=== PATIENT | female | born 1965 | race Caucasian/White ===

== ENCOUNTER 2020-03-08 10:57 | Day surgery (SDC) | payer BC, SELFPAY ==
[2020-03-06 18:00] VITALS: BMI 26.6
--- NOTE | 2020-03-07 12:11 | P.CONAN_ITS ---
Documented by User: Valerie Morales 03/07/20 12:12 HPI - Anesthesia Eval Consult details Narrative: 54yo F for colonoscopy: screening FOR[facility]LY [facility], [facility] Past Medical History Medical History Urinary incontinence Surgical History Surgical History History of colonoscopy History of hysterectomy History of tonsillectomy Hx of breast reduction, elective Social History Social History Smoking Status: Never smoker Use of substances other than those prescribed or required for medical reasons: No Advance Directives: No Advance Directives Information Provided: No Advance Directives on File: No Meds Allergies Allergy/AdvReac Type Severity Reaction Status Date / Time No Known Allergies Allergy Verified 03/06/20 17:48 Home Medications Medication Instructions Recorded Confirmed Type No Known Home Meds 03/06/20 03/06/20 History Exam Exam Date and Time: March 07, 2020 1211 Height,Weight and Vital Signs: Height 5 ft 4 in Weight 70.307 kg Assessment and Plan Assessment Anesthesia Assessment: Chart Reviewed Documented by User: Carey Tovar 03/08/20 11:38 FORMERLY [facility], [facility] Past Medical History Medical History Urinary incontinence Surgical History Surgical History History of colonoscopy History of hysterectomy History of tonsillectomy Hx of breast reduction, elective Social History Social History Smoking Status: Never smoker Use of substances other than those prescribed or required for medical reasons: No Advance Directives: No Advance Directives Information Provided: No Advance Directives on File: No Meds Allergies Allergy/AdvReac Type Severity Reaction Status Date / Time No Known Allergies Allergy Verified 03/06/20 17:48 Home Medications Medication Instructions Recorded Confirmed Type No Known Home Meds 03/06/20 03/06/20 History Exam Airway Mallampati Class: II TM Dist: >3cm Neck ROM: Full Assessment and Plan Assessment Anesthesia Assessment: Anesthesia Plan Discussed and Chart Reviewed Final Anesthetic Review NPO: Yes ASA Class: I Final Preanesthetic Review: No Changes in Pt Med Stat, Meds/Allgs Chart Reviewed, Consent Obtained/Reviewed and Anes Risks/Benef Reviewed Patient Risk: Low Procedure Risk: Low Assessment/Block/Sedation in SS: Assess/Block/Sedation-SS Anesthetic Plan Anesthetic Plan: MAC: Disposition: Standard PACU
[2020-03-08 11:05] VITALS: BP 104/77; PULSE 69; RESP 16; TEMP 35.8; O2SAT 98
[2020-03-08] MEDS: Lactated Ringers 1,000 ML 100 ML IVCONT (11:14)
[2020-03-08 11:57] VITALS: BP 91/46; PULSE 55; RESP 16; TEMP 36; O2SAT 97
--- NOTE | 2020-03-08 11:57 | MHC.SHP ---
Pre-Procedural Eval Section A The patient is an INPATIENT: No Changes since office visit: No Cold of Flu in the past 2 weeks, No New Medical Problems, No Changes in Medication and No Patient answered all questions The History & Physical has been completed within 30 days and I have reviewed it.: Yes Section B Chief Complaint: Screening Allergies: Allergies Allergy/AdvReac Type Severity Reaction Status Date / Time No Known Allergies Allergy Verified 03/06/20 17:48 Plan Patient has been examined and remains a candidate for the planned procedure
--- NOTE | 2020-03-08 11:57 | PM.OP ---
Brief Operative Note Date of procedure: 03/08/20 Pre-op diagnosis: screening Post-op diagnosis: other (colon polyps) Procedure: colonosocpy Surgeon: Drew Linares Anesthesia: MAC Estimated blood loss (mL): 5 Pathology: other (polyps x3) Condition: stable Disposition: PACU
[2020-03-08 12:13] VITALS: BP 104/60; PULSE 55; RESP 16; TEMP 36.1; O2SAT 100
--- NOTE | 2020-03-08 12:18 | OP_ITS ---
SURGEON: Drew Linares MD INDICATIONS: Colon cancer screening. PREOPERATIVE DIAGNOSIS: POSTOPERATIVE DIAGNOSIS: PROCEDURE PERFORMED: Colonoscopy to the terminal ileum with biopsy and snare polypectomy. ESTIMATED BLOOD LOSS: COMPLICATIONS: ANESTHESIA: ASSISTANTS: SPECIMENS: MEDICATIONS: Monitored anesthesia care. DESCRIPTION OF PROCEDURE: History and physical performed. The risks and benefits of the procedure were explained to the patient. Informed consent was obtained. The patient was placed in the left lateral decubitus position. A digital rectal exam was performed and was found to be normal. The Olympus pediatric video colonoscope was introduced into the rectum and advanced to the cecum without difficulty. The cecum was identified by transillumination, palpation, and identification of the ileocecal valve. Examination was performed and the scope was removed. She tolerated the procedure well and was taken to recovery area in stable condition. FINDINGS: The terminal ileum was normal. The visualized colonic mucosa was normal. The quality of the prep was good. Three polyps were identified. All were less than 10 mm, two were removed with a snare. These were located at 70 cm and 25 cm. The 3rd polyp at 60 cm was removed with biopsy forceps. No other polyps were identified. Retroflexed examination was normal. IMPRESSION: Colon polyps. RECOMMENDATION: Follow up the biopsy results. MD HORACIO Tovar/ROSS / [id number]
--- NOTE | 2020-03-08 12:57 | HO.POSTANES ---
Post Anesthesia Evaluation Post Anesthesia Evaluation Vital Signs: Vital Signs Temp Pulse Resp BP Pulse Ox 03/08/20 12:13 97 F 55 16 104/60 100 03/08/20 11:57 96.8 F 55 16 91/46 L 97 03/08/20 11:05 96.5 F L 69 16 104/77 98 Anesthesia: Monitored Mental Status: Awake Pain Control: Satisfactory Nausea/Vomiting: None Hydration: Adequate Anesthesia-Related Issues: No Anes. Related Issues
== END 2020-03-08 14:15 | disposition home or self-care (01) ==
PROVIDERS: PCP Internal Medicine Medical Oncology; Visit Provider Internal Medicine Gastroenterology
PROC: 0DJD8ZZ Inspection of Lower Intestinal Tract, Via Natural or Artificial Opening Endoscopic (ICD-10-PCS; CPT 45378; principal; 2020-03-08 12:00)
DX: Z12.11 Encounter for screening for malignant neoplasm of colon (principal); Z80.0 Family history of malignant neoplasm of digestive organs; D12.4 Benign neoplasm of descending colon; D12.5 Benign neoplasm of sigmoid colon; Z80.3 Family history of malignant neoplasm of breast; R32 Unspecified urinary incontinence
CPT/HCPCS: 45385; 45380; 88305

== ENCOUNTER 2020-03-28 06:05 | Outpatient (REF) | payer BC, SELFPAY ==
[2020-03-28 07:55] LABS: MANUAL DIFF FLAG NO
[2020-03-28 07:57] LABS: Basophils Percent Auto 0.8 % (0-2); Eosinophils Absolute Auto 0.1 X10*3/uL (0.0-0.4); Eosinophils Percent Auto 3.1 % (0-4); Hematocrit 39.6 % (37-47); Imm Gran Abs Auto 0.01 X10*3/uL (0.00-0.03); Imm Gran Pct Auto 0.3 % (0.0-0.4); Lymphocytes Absolute Auto 1.1 X10*3/uL (1.2-4.9); Lymphocytes Percent Auto 29.1 % (20-40); Mean Corpuscular HGB Conc 32.8 g/dl (31.0-35.0); Mean Corpuscular Volume 94.3 fL (80-98); Mean Platelet Volume 11.3 fL (9.4-12.3); Monocytes Absolute Auto 0.3 X10*3/uL (0.1-1.2); Monocytes Percent Auto 8.4 % (2-11); Neutrophils Absolute Auto 2.2 X10*3/uL (2.0-8.3); Neutrophils Percent Auto 58.3 % (45-73); Platelet Count 188 X10*3/uL (160-400); Red Cell Distribution Width 12.4 % (11.0-16.0); White Blood Count 3.8 X10*3/uL (4.8-10.8)
[2020-03-28 08:35] LABS: Alanine Aminotransferase 20 U/L (0-31); Albumin Level 4.3 g/dL (3.5-5.0); Alkaline Phosphatase 67 U/L (39-117); Anion Gap 11 (12-20); Aspartate Amino Transferase 17 U/L (5-31); Bilirubin Total 0.6 mg/dL (0.0-1.0); Blood Urea Nitrogen 14 mg/dL (9-16); Calcium 8.7 mg/dL (8.4-10.2); Carbon Dioxide 24 mmol/L (22-29); Chloride 108 mmol/L (96-108); Cholesterol 235 mg/dL; Estimated Glomerular Filt Rate > 60; Glucose Fasting 93 mg/dL (60-99); HDL Cholesterol 81 mg/dL; LDL Cholesterol Calculated 121 mg/dl; Potassium 4.2 mmol/l (3.3-5.1); Sodium 139 mmol/L (135-145); Total Protein 6.3 g/dL (6.5-8.0); Triglycerides 167 mg/dL
[2020-03-28 08:42] LABS: Vitamin D 25-OH Total 21.5 ng/mL (>30)
== END 2020-03-28 06:06 | disposition home or self-care (01) ==
LOC: HO.LAB 06:05
PROVIDERS: Visit Provider Internal Medicine Medical Oncology
DX: F32.9 Major depressive disorder, single episode, unspecified (principal); E78.5 Hyperlipidemia, unspecified; F51.01 Primary insomnia
CPT/HCPCS: 36415; 80053; 80061; 82306; 85025

== ENCOUNTER 2020-06-28 06:14 | Outpatient (REF) | payer BC, SELFPAY ==
[2020-06-28 07:13] LABS: MANUAL DIFF FLAG NO
[2020-06-28 07:19] LABS: Basophils Percent Auto 0.8 % (0-2); Eosinophils Absolute Auto 0.1 X10*3/uL (0.0-0.4); Eosinophils Percent Auto 3.6 % (0-4); Hematocrit 43.5 % (37-47); Hemoglobin 14.5 g/dl (12.0-16.0); Imm Gran Abs Auto 0.01 X10*3/uL (0.00-0.03); Imm Gran Pct Auto 0.3 % (0.0-0.4); Lymphocytes Absolute Auto 1.5 X10*3/uL (1.2-4.9); Lymphocytes Percent Auto 38.5 % (20-40); Mean Corpuscular HGB Conc 33.3 g/dl (31.0-35.0); Mean Corpuscular Hemoglobin 31.1 pg (27.0-33.0); Mean Corpuscular Volume 93.3 fL (80-98); Mean Platelet Volume 11.1 fL (9.4-12.3); Monocytes Absolute Auto 0.4 X10*3/uL (0.1-1.2); Monocytes Percent Auto 10.5 % (2-11); Neutrophils Absolute Auto 1.8 X10*3/uL (2.0-8.3); Neutrophils Percent Auto 46.3 % (45-73); Platelet Count 205 X10*3/uL (160-400); Red Blood Count 4.66 X10*6/uL (4.20-5.50); Red Cell Distribution Width 11.7 % (11.0-16.0); White Blood Count 3.9 X10*3/uL (4.8-10.8)
[2020-06-28 07:44] LABS: Alanine Aminotransferase 32 U/L (0-31); Albumin Level 4.7 g/dL (3.5-5.0); Alkaline Phosphatase 76 U/L (39-117); Anion Gap 14 (12-20); Aspartate Amino Transferase 25 U/L (5-31); Bilirubin Total 0.5 mg/dL (0.0-1.0); Blood Urea Nitrogen 20 mg/dL (9-16); Calcium 9.4 mg/dL (8.4-10.2); Carbon Dioxide 26 mmol/L (22-29); Chloride 103 mmol/L (96-108); Cholesterol 312 mg/dL; Estimated Glomerular Filt Rate > 60; Glucose Fasting 107 mg/dL (60-99); HDL Cholesterol 74 mg/dL; LDL Cholesterol Calculated 206 mg/dl; Potassium 4.4 mmol/L (3.3-5.1); Sodium 139 mmol/L (135-145); Total Protein 7.2 g/dL (6.5-8.0); Triglycerides 161 mg/dL
== END 2020-06-28 06:15 | disposition home or self-care (01) ==
LOC: HO.LAB 06:14
PROVIDERS: PCP Internal Medicine Medical Oncology; Visit Provider Internal Medicine Medical Oncology
DX: E78.5 Hyperlipidemia, unspecified (principal); N83.209 Unspecified ovarian cyst, unspecified side; F51.01 Primary insomnia
CPT/HCPCS: 36415; 80053; 80061; 85025

== ENCOUNTER 2020-08-27 06:09 | Outpatient (REF) | payer BC, SELFPAY ==
[2020-08-27 07:45] LABS: Alanine Aminotransferase 29 U/L (0-31); Albumin Level 4.6 g/dL (3.5-5.0); Alkaline Phosphatase 87 U/L (39-117); Anion Gap 14 (12-20); Aspartate Amino Transferase 25 U/L (5-31); Bilirubin Total 0.9 mg/dL (0.0-1.0); Blood Urea Nitrogen 9 mg/dL (9-16); Calcium 9.4 mg/dL (8.4-10.2); Carbon Dioxide 25 mmol/L (22-29); Chloride 104 mmol/L (96-108); Cholesterol 264 mg/dL; Estimated Glomerular Filt Rate > 60; Glucose Fasting 101 mg/dL (60-99); HDL Cholesterol 83 mg/dL; LDL Cholesterol Calculated 159 mg/dl; Potassium 3.9 mmol/L (3.3-5.1); Sodium 139 mmol/L (135-145); Total Protein 6.9 g/dL (6.5-8.0); Triglycerides 112 mg/dL
== END 2020-08-27 06:10 | disposition home or self-care (01) ==
LOC: HO.LAB 06:09
PROVIDERS: PCP Internal Medicine Medical Oncology; Visit Provider Internal Medicine Medical Oncology
DX: E66.3 Overweight (principal)
CPT/HCPCS: 36415; 80053; 80061

== ENCOUNTER 2022-06-22 06:12 | Outpatient (REF) | payer BC, SELFPAY ==
[2022-06-22 06:20] LABS: MANUAL DIFF FLAG NO
[2022-06-22 07:41] LABS: Basophils Percent Auto 0.8 % (0-2); Eosinophils Absolute Auto 0.1 X10*3/uL (0.0-0.4); Eosinophils Percent Auto 2.5 % (0-4); Hematocrit 44.6 % (37.0-47.0); Hemoglobin 14.7 g/dl (12.0-16.0); Imm Gran Abs Auto 0.02 X10*3/uL (0.00-0.03); Imm Gran Pct Auto 0.4 % (0.0-0.4); Lymphocytes Absolute Auto 1.3 X10*3/uL (1.2-4.9); Lymphocytes Percent Auto 27.4 % (20-40); Mean Corpuscular Hemoglobin 29.9 pg (27.0-33.0); Mean Corpuscular Volume 90.7 fL (80.0-98.0); Mean Platelet Volume 11.3 fL (9.4-12.3); Monocytes Absolute Auto 0.4 X10*3/uL (0.1-1.2); Monocytes Percent Auto 7.8 % (2-11); Neutrophils Percent Auto 61.1 % (45-73); Platelet Count 205 X10*3/uL (160-400); Red Blood Count 4.92 X10*6/uL (4.20-5.50); Red Cell Distribution Width 12.1 % (11.0-16.0); White Blood Count 4.9 X10*3/uL (4.8-10.8)
[2022-06-22 08:15] LABS: Estimated Average Glucose 111 mg/dL; Hemoglobin A1c % 5.5 %
[2022-06-22 08:18] LABS: Alanine Aminotransferase 36 U/L (0-31); Albumin Level 4.6 g/dL (3.5-5.0); Alkaline Phosphatase 103 U/L (39-117); Anion Gap 17 (12-20); Aspartate Amino Transferase 26 U/L (5-31); Bilirubin Total 0.7 mg/dL (0.0-1.0); Blood Urea Nitrogen 14 mg/dL (9-16); Calcium 9.9 mg/dL (8.4-10.2); Carbon Dioxide 22 mmol/L (22-29); Chloride 107 mmol/L (96-108); Cholesterol 331 mg/dL; Estimated Glomerular Filt Rate > 60; Glucose Fasting 112 mg/dL (60-99); HDL Cholesterol 84 mg/dL; LDL Cholesterol Calculated 214 mg/dl; Potassium 4.2 mmol/L (3.3-5.1); Sodium 142 mmol/L (135-145); Total Protein 6.9 g/dL (6.5-8.0); Triglycerides 168 mg/dL
[2022-06-22 08:23] LABS: Thyroid Stimulating Hormone 1.67 uIU/mL (0.32-4.0); Vitamin D 25-OH Total 14.9 ng/mL (>30)
== END 2022-06-22 06:13 | disposition home or self-care (01) ==
LOC: HO.LAB 06:12
PROVIDERS: PCP Internal Medicine Medical Oncology; Visit Provider Internal Medicine Medical Oncology
DX: Z00.00 Encounter for general adult medical examination without abnormal findings (principal)
CPT/HCPCS: 36415; 80053; 80061; 82306; 83036; 84443; 85025

== ENCOUNTER 2023-05-24 12:20 | Outpatient (REF) | payer BC, SELFPAY ==
--- NOTE | ~2023-05-24 | XR_ITS ---
EXAMINATION: XR CHEST CLINICAL INFORMATION: Chest pain. COMPARISON: None available. TECHNIQUE: 2 views of the chest were obtained. FINDINGS: The lungs are well inflated. There is no gross pneumothorax. No pleural effusion. Degenerative changes in the thoracic spine. Heart size is normal. No focal consolidation to suggest pneumonia. XR/XR chest 2V IMPRESSION: No evidence of pneumonia.
--- NOTE | 2023-05-24 12:25 | ECG_ITS ---
Test Reason : chest pain Blood Pressure : / mmHG Vent. Rate : 067 BPM Atrial Rate : 067 BPM P-R Int : 152 ms QRS Dur : 074 ms QT Int : 404 ms P-R-T Axes : 041 001 044 degrees QTc Int : 426 ms Normal sinus rhythm Normal ECG No previous ECGs available Referred By: James Gaona Electronically Signed By:JONATHAN HEREDIA MD
== END 2023-05-24 12:21 | disposition home or self-care (01) ==
LOC: HO.XRAY 12:20
PROVIDERS: PCP Internal Medicine Medical Oncology; Visit Provider Internal Medicine Medical Oncology
DX: R07.9 Chest pain, unspecified (principal)
CPT/HCPCS: 71046; 93005

== ENCOUNTER → 2023-05-24 12:25 | Outpatient (BNV) | payer BC, SELFPAY | PROVIDERS: PCP Internal Medicine Medical Oncology; Visit Provider Internal Medicine Cardiovascular Disease | DX: R07.9 Chest pain, unspecified (principal) | CPT/HCPCS: 93010 ==

== ENCOUNTER 2023-05-26 07:57 | Outpatient (REF) | payer BC, SELFPAY ==
[2023-05-26 08:20] LABS: Basophils Percent Auto 0.5 % (0-2); Eosinophils Absolute Auto 0.1 X10*3/uL (0.0-0.4); Hematocrit 43.4 % (37.0-47.0); Hemoglobin 14.7 g/dl (12.0-16.0); Imm Gran Abs Auto 0.01 X10*3/uL (0.00-0.03); Imm Gran Pct Auto 0.3 % (0.0-0.4); Lymphocytes Absolute Auto 1.3 X10*3/uL (1.2-4.9); Lymphocytes Percent Auto 34.1 % (20-40); MANUAL DIFF FLAG SCAN; Mean Corpuscular HGB Conc 33.9 g/dl (31.0-35.0); Mean Corpuscular Hemoglobin 31.3 pg (27.0-33.0); Mean Corpuscular Volume 92.5 fL (80.0-98.0); Mean Platelet Volume 10.5 fL (9.4-12.3); Monocytes Absolute Auto 0.4 X10*3/uL (0.1-1.2); Monocytes Percent Auto 9.8 % (2-11); Neutrophils Absolute Auto 1.9 x10*3/uL (2.0-8.3); Neutrophils Percent Auto 52.3 % (45-73); Platelet Count 199 X10*3/uL (160-400); Red Blood Count 4.69 X10*6/uL (4.20-5.50); Red Cell Distribution Width 11.9 % (11.0-16.0); SCAN SMEAR FLAG 1; White Blood Count 3.7 X10*3/uL (4.8-10.8)
[2023-05-26 08:54] LABS: Alanine Aminotransferase 124 U/L (0-31); Albumin Level 4.7 g/dL (3.5-5.0); Alkaline Phosphatase 98 U/L (39-117); Anion Gap 15 (12-20); Aspartate Amino Transferase 80 U/L (5-31); Bilirubin Total 0.8 mg/dL (0.0-1.0); Blood Urea Nitrogen 10 mg/dL (9-16); Calcium 9.8 mg/dL (8.4-10.2); Carbon Dioxide 25 mmol/L (22-29); Chloride 105 mmol/L (96-108); Cholesterol 214 mg/dL (<200); Estimated Glomerular Filt Rate > 60; Glucose Fasting 97 mg/dL (60-99); HDL Cholesterol 57 mg/dL (>40); LDL Cholesterol Calculated 137 mg/dL (<100); Potassium 3.5 mmol/L (3.3-5.1); Sodium 141 mmol/L (135-145); Total Protein 7.2 g/dL (6.5-8.0); Triglycerides 103 mg/dL (<150)
[2023-05-26 09:12] LABS: SLIDE REVIEW VERIFIED
== END 2023-05-26 07:58 | disposition home or self-care (01) ==
LOC: HO.LAB 07:57
PROVIDERS: PCP Internal Medicine Medical Oncology; Visit Provider Internal Medicine Medical Oncology
DX: F32.9 Major depressive disorder, single episode, unspecified (principal); E78.5 Hyperlipidemia, unspecified
CPT/HCPCS: 36415; 80053; 80061; 85025

== ENCOUNTER 2023-06-23 06:02 | Outpatient (REF) | payer BC, SELFPAY ==
[2023-06-23 07:42] LABS: Alanine Aminotransferase 38 U/L (0-31); Albumin Level 4.3 g/dL (3.5-5.0); Alkaline Phosphatase 117 U/L (39-117); Anion Gap 13 (12-20); Aspartate Amino Transferase 27 U/L (5-31); Bilirubin Total 0.4 mg/dL (0.0-1.0); Blood Urea Nitrogen 11 mg/dL (9-16); Calcium 9.8 mg/dL (8.4-10.2); Carbon Dioxide 24 mmol/L (22-29); Chloride 107 mmol/L (96-108); Estimated Glomerular Filt Rate > 60; Glucose Random 107 mg/dL (60-115); Potassium 4.1 mmol/L (3.3-5.1); Sodium 140 mmol/L (135-145); Total Protein 6.9 g/dL (6.5-8.0)
[2023-06-23 07:58] LABS: Gamma Glutamyl Transpeptidase 73 U/L (7-33)
== END 2023-06-23 06:03 | disposition home or self-care (01) ==
LOC: HO.LAB 06:02
PROVIDERS: PCP Internal Medicine Medical Oncology; Visit Provider Internal Medicine Medical Oncology
DX: E66.3 Overweight (principal); R74.8 Abnormal levels of other serum enzymes
CPT/HCPCS: 36415; 80053; 82977

== ENCOUNTER 2023-06-29 07:51 | Day surgery (SDC) | payer BC, SELFPAY ==
--- NOTE | 2023-06-28 10:21 | P.CONAN_ITS ---
HPI - Anesthesia Eval Consult details Narrative: 58yo F for Colonoscopy FORMERLY [facility] Past Medical History Medical History Urinary incontinence Surgical History Surgical History History of colonoscopy History of hysterectomy History of tonsillectomy Hx of breast reduction, elective Meds Allergies Allergy/AdvReac Type Severity Reaction Status Date / Time No Known Allergies Allergy Verified 03/06/20 17:48 Home Medications Medication Instructions Recorded Confirmed Last Taken Type No Known Home Meds 03/06/20 03/06/20 Unknown History Exam Pertinent Lab Results Pertinent Lab Results: Laboratory Tests 05/26/23 06/23/23 08:06 06:27 WBC 3.7 L Hgb 14.7 Hct 43.4 Plt Count 199 Sodium 140 Potassium 4.1 Chloride 107 Carbon Dioxide 24 BUN 11 Creatinine 0.82 Narrative Narrative: EKG 05/2023 Vent. Rate : 067 BPM Atrial Rate : 067 BPM P-R Int : 152 ms QRS Dur : 074 ms QT Int : 404 ms P-R-T Axes : 041 001 044 degrees QTc Int : 426 ms Normal sinus rhythm Normal ECG No previous ECGs available Assessment and Plan Assessment Anesthesia Assessment: Chart Reviewed
--- OUTSIDE RECORDS SUMMARY | 2023-06-29 07:55 | XMS_ITS | Continuity of Care Document ---
Author Name Unknown Organization [facility] Address [address] [facility] [place] [address]- Care Team Providers Care Seismograph Observer Name Role Phone Marco Antonio Fonseca MD Primary Care Physician [phone] Encounter 06/15/19 - 06/22/19 [facility] [address], [facility] [address] [place] [address]- [phone] Attending Physician: Marco Antonio Fonseca MD Admitting Physician: Marco Antonio Fonseca MD Referring Physician: Marco Antonio Fonseca MD Allergies, Adverse Reactions, Alerts Substance Reaction Severity Status NKA Active Results Radiology Reports * Exam Date Time Procedure Performing Provider Status 06/15/19 3:12 PM Dexa Bone Density (Axial) Vincent Jackson (Verified) Notes: (Dexa Bone Density (Axial)) Reason For Exam: M85.89 OSTEOPENIA RESULT: DEXA BONE DENSITY (AXIAL) Bone Density Report Name: JONELLE AWAD Age: 54 Sex: Female Ethnicity: White Date of : 1965 Indication: POSTMENOPAUSAL. Referring Provider: MARCO ANTONIO FONSECA Study: Bone densitometry was performed. Exam Date: June 15, 2019 Accession number: [id number] Bone Density: Region BMD T-score Z-score Classification AP Spine (L1-L4) 0.928 -1.1 0.0 Osteopenia Femoral Neck (Right) 0.829 -0.2 0.9 Normal Total Hip (Right) 0.890 -0.4 0.3 Normal World Health Organization criteria for BMD impression classify patients as: Normal (T-score at or above -1.0), Osteopenia (T-score between -1.0 and -2.5), or Osteoporosis (T-score at or below -2.5). 10-year Fracture Risk(1): Major Osteoporotic Fracture 5.3% Hip Fracture 0.1% Reported Risk Factors: [place] (), Neck BMD=0.829, BMI=25.6 (1) FRAX(R) Version 3.00. Fracture probability calculated for an untreated patient. Fracture probability may be lower if the patient has received treatment. Previous Exams: Region Exam Age BMD T-score BMD Change BMD Change Date g/cm2 vs Baseline vs Previous AP Spine(L1-L4) 06/15/2019 54 0.928 -1.1 3.3%* 2.7%* 04/29/2017 52 0.904 -1.3 0.6% 0.6% 04/20/2014 49 0.898 -1.4 Total Hip(Right) 06/15/2019 54 0.890 -0.4 9.1%* 1.9% 04/29/2017 52 0.873 -0.6 7.1%* 7.1%* 04/20/2014 49 0.815 -1.0 Femoral Neck(Right) 06/15/2019 54 0.829 -0.2 13.8%* 9.5%* 04/29/2017 52 0.757 -0.8 4.0% 4.0% 04/20/2014 49 0.728 -1.1 *Denotes significance at 95% confidence level, LSC for AP Spine = 0.022 g/cm2, LSC for Total Hip = 0.027 g/cm2 Clinical Information Provided by Patient: Has the following medical conditions: Hysterectomy Patient maximum height was 63.5 Menopause Age: 44 Onset of menses at age 11 Number of children 1 Impression: The patient has osteopenia as determined by WHO criteria. Reported by: Chapincito Bennett M.D. on 06/16/2019 11:24:00 AM. Dictated By: Chapincito Bennett MD Dictated Date/Time: 06/16/19 11:25 a Reviewed By: Chapincito Bennett MD Signed By: Chapincito Bennett MD Signed Date/Time: 06/16/19 11:25 am Transcribed By: DOMINIK Transcribed Date/Time: 06/16/19 11:25 am
--- OUTSIDE RECORDS SUMMARY | 2023-06-29 07:55 | XMS_ITS | Continuity of Care Document ---
Author Name Unknown Organization [facility] Address [address] [facility] [address] [place] [address]- Care Team Providers Care Esthetician/Spa Coordinator Name Role Phone Marilee Fonseca MD Primary Care Physician [phone] Encounter 07/24/21 - 07/31/21 [facility] [address], [facility] [address] [place] [address]- Attending Physician: Marilee Fonseca MD Admitting Physician: Marilee Fonseca MD Referring Physician: Marilee Fonseca MD Allergies, Adverse Reactions, Alerts No Known Allergies
--- OUTSIDE RECORDS SUMMARY | 2023-06-29 07:55 | XMS_ITS | Continuity of Care Document ---
Author Name Unknown Organization [facility] Address [address] [facility] [address] [place] [address]- Care Team Providers Care Director Of Anesthesia Services Name Role Phone Marilee Fonseca MD Primary Care Physician Encounter 06/19/20 - 06/26/20 [facility] [address], [address] [place] [address]- Attending Physician: Marilee Fonseca MD Admitting Physician: Marilee Fonseca MD Referring Physician: Marilee Fonseca MD Allergies, Adverse Reactions, Alerts Substance Reaction Severity Status NKA Active
--- OUTSIDE RECORDS SUMMARY | 2023-06-29 07:55 | XMS_ITS | Continuity of Care Document ---
Author Name Unknown Organization [facility] Address [address] [facility] [place] [address]- Care Team Providers Care Termite Inspector Name Role Phone Marilee Fonseca MD Primary Care Physician Encounter 07/27/22 - 08/03/22 [facility] [address], [address] [place] [address]- Attending Physician: Jonelle Ayala DO Admitting Physician: Jonelle Ayala DO Referring Physician: Jonelle Ayala DO Allergies, Adverse Reactions, Alerts No Known Allergies Results Radiology Reports * Exam Date Time Procedure Performing Provider Status 07/27/22 4:07 PM MM Digital Mammo Screening Reid Welch son; Auth (Verified) Notes: (MM Digital Mammo Screening) Reason For Exam: Z12.31 SCREENING RESULT: MM Digital Mammo Screening PROCEDURE: MM Digital Mammo Screening INDICATION: Screening for breast cancer. COMPARISON: Multiple prior studies dating back to 06/15/2019. TECHNIQUE: Full-field digital CC and MLO 3D tomosynthesis images of both breasts were acquired. Computer-aided detection (CAD) was utilized in the interpretation of this study. DENSITY: The breast tissue contains scattered areas of fibroglandular density. FINDINGS: No suspicious masses, suspicious microcalcifications, or areas of architectural distortion are seen in either breast to suggest malignancy. IMPRESSION: No mammographic evidence of malignancy. RECOMMENDATION: Annual mammographic screening BI-RADS: 1 (Negative) Lay letter mailed to patient I have personally reviewed the images and I agree with this report. WSN: [id number] Ordering Physician: Jonelle Ayala Dictated By: Carlos Wellington DO Dictated Date/Time: 07/27/22 4:26 pm Reviewed By: Chapincito Bennett MD Signed By: Chapincito Bennett MD Signed Date/Time: 07/27/22 4:31 pm Transcribed By: DOMINIK Chicken Boner Date/Time: 07/27/22 4:20 pm Birads: MG Breast Screening * CorrinariCHANA rocha S: TRANSCRIBE Chapincito Bennett MD: VERIFY Carlos Wellington DO: SIGN Event Display: Result: Authored Date: [id number] PROCEDURE: MM Digital Mammo Screening INDICATION: Screening for breast cancer. COMPARISON: Multiple prior studies dating back to 06/15/2019. TECHNIQUE: Full-field digital CC and MLO 3D tomosynthesis images of both breasts were acquired. Computer-aided detection (CAD) was utilized in the interpretation of this study. DENSITY: The breast tissue contains scattered areas of fibroglandular density. FINDINGS: No suspicious masses, suspicious microcalcifications, or areas of architectural distortion are seen in either breast to suggest malignancy. IMPRESSION: No mammographic evidence of malignancy. RECOMMENDATION: Annual mammographic screening BI-RADS: 1 (Negative) Lay letter mailed to patient I have personally reviewed the images and I agree with this report. WSN: [id number] Ordering Physician: Jonelle Ayala Dictated By: Carlos Wellington DO Dictated Date/Time: 07/27/22 4:26 pm Reviewed By: Chapincito Bennett MD Signed By: Chapincito Bennett MD Signed Date/Time: 07/27/22 4:31 pm Transcribed By: DOMINIK Chicken Boner Date/Time: 07/27/22 4:20 pm Birads: Patient Care team information Care Team Related Persons Name: MAHSA AWAD Address: home [address] [place] [id number]
--- OUTSIDE RECORDS SUMMARY | 2023-06-29 07:55 | XMS_ITS | Patient Health Record ---
Author Name Unknown Organization [facility] Address [address] [facility] [address] [place] [address] Care Team Providers Care Design Assembler Name Role Phone James Gaona MD Primary Care Provider Unavailab Drew Sparks Jr Unavailable [phone] ALLERGIES No Known Allergies REASON FOR REFERRAL Referring Provider First Name James Referring Provider Last Name Candelaria Referring Provider Speciality Oncology Referred Organization [facility] Referred Provider Drew Linares Jr Referred Address [address] [place] [address],[address], [place],[address], Referred Provider Specialty Gastroentero logy General Notes Moira Sandoval 023 11:44:42 AM EST > requested an o blue referral from Dr. Gaona for office visit with Dr. Linares on 06-10-2023, Moira Sandoval 04/27/2023 01:13:50 PM EST > SPOKE WITH DR GAONA'S OFFICE. THIS IS STILL PENDING, Moira Sandoval 04/27/2023 04:23:50 PM EST > no referral required this is an [facility] plan ref # [id number] Referral Priority Routine MEDICATIONS Medication SIG (Take, Route, Frequency, Duration) Notes Start Date End Date Status buPROPion HCl ER (SR) 150 MG TAKE 1 TABLET BY MOUTH EVERY DAY IN THE MORNING FOR 30 DAYS Oral for 90 Active Fish Oil 1000 MG 1 capsule Orally Onc e a day for 30 day(s) Active Vitamin D3 25 MCG (1000 UT) Oral for 30 Active MiraLax (colon prep) 17 GM/SCOOP mixed with Gatorade or Crystal Light Orally begin at 5:00 p.m. the day before the procedure for 1 day 06/10/2023 Active IMMUNIZATIONS Vaccine Route Administration Date Status Comme nts Influenza Unknown 01/16/2020 Administered SOCIAL HISTORY Sex Assigned At : Social History Observation Description Sex Assigned At Unknown Alcohol Screen Question Answer Notes Did you have a drink contain ing alcohol in the past year? Yes How often did you have a dri nk containing alcohol in the past year? 4 or more times a week (4 points) How many drinks did you have on a typical day when you were drinking in the past year? 3 or 4 drinks (1 point) How often did you have 6 or more drinks on one occasion in the past year? Never (0 point) Points 5 Interpretation Positive PROBLEMS Problem Type ICD Code Onset Dates Problem Status W/U Status Risk SNOMED Code Notes Problem Colon cancer screening (Z12.11) Active confirmed 386980703 Problem Personal history of colonic polyps (Z86.010) Active confirmed 714937891 Problem Encounter for other preprocedural examination (Z01.818) Active confirmed [id number] Encounters Encounter Location Date Provider Diagnosis [facility] Outpatient [address] [place] [phone] 06/29/2023 Drew Linares Jr [facility] [address] [facility] [address] [place] [phone] 06/10/2023 Drew Linares Jr Colon cancer screening Z12.11 ; Encounter for other preprocedural examination Z01.818 and Personal history of colonic polyps Z86.010 [facility] [address] [facility] [address] [place] [phone] 04/26/2023 Drew Linares Jr ASSESSMENTS Encounter Date Diagnosis Assessment Notes Treatment Notes Treatment Clinical Notes 06/10/2023 Colon cancer screening (ICD-10 - Z12.11) 06/10/2023 Encounter for other preprocedural examination (ICD-10 - Z01.818) 06/10/2023 Personal history of colonic polyps (ICD-10 - Z86.010) PLAN OF TREATMENT Future Test Test Name Order Date COLONOSCOPY 06/07/2014 COLONOSCOPY 02/15/2020 COLONOSCOPY 06/10/2023 Next Appt Details Provider Name:Drew persaud Jr, 06/29/2023 10:50:00 AM, [address] [place] [address], [phone], Insurance Providers Payer Name Payer Address Payer Phone Subscriber Number Group Number Insured Name Patient Relationship to Insured Coverage Start Date Coverage End Date [employer] [place] [address] [place] [address] [id number] COUNTER, JONELLE Self - patient is the insured MEDICAL (GENERAL) HISTORY Medical History History ICD Code Anxiety/depression Urinary incontinence Colonoscopy in 03/05, tubula r adenomas and sessile serrated polyp, three-year followup Surgical History Surgery Date(Month/Year) Hysterectomy 2009 Reduction mammoplasty
--- OUTSIDE RECORDS SUMMARY | 2023-06-29 07:55 | XMS_ITS ---
Author Name Unknown Address [address] [place] [phone] Organization [facility], Address [address] [place] [phone] Care Team Providers Care Oracle Database Manager Name Role Phone Unavailable Primary Care Physician Unavailab le Allergies and Adverse Reactions Name Reaction Notes NO KNOWN DRUG ALLERGIES - Phrees ia 04/24/2019 Medications Active Name Start Date Estimated Comple tion Date SIG Comments tramadol 50 mg oral tablet 04/24/2019 1-2 po q 6h prn pain ibuprofen 800 mg oral tablet 08/01/2019 TAKE 1 TABLET BY MOUTH THREE TIMES A DAY WITH FOOD Problem List Description Status Onset Strain of lumbar region, initial encounter Activ e 04/24/2019 Back strain, subsequent encounter Active 04/27/2019 Vital Signs Date Time BP-Sys(mm[Hg] BP-Rachel(mm[Hg]) HR(bpm) RR(rpm) Temp WT HT HC BMI BSA BMI Percentile O2 Sat(%) 2018 9:17: 00 AM 145 lbs 64 in 24.8 889 kg/m 2 1.72 34 m2 Social History Name Description Comments Tobacco Former smoker - Phreesia 04/24 Alcohol Use Current every day - Phreesia 01/2019 - Phreesia 04/24 History of Procedures Date Ordered Description Order Status 04/24/2019 12:00 AM ACP DISCUSS-NO [id number] DOCD Natacha tobias 04/24/2019 12:00 AM BMI Above Normal Ran ge - Patient's BMI is outside of the normal parameters. An educational fact sheet was given and discussed with the patient. Advised patient to follow-up with their PCP for dietary counseling. Reviewed 04/24/2019 12:00 AM Pain Assessment usin g a standardized tool is documented as negative, no follow-up plan required. Reviewed 04/25/2019 12:00 AM ELECTRIC STIMULATION THERAPY Reviewed 04/25/2019 12:00 AM SELF CARE MNGMENT TRAINING Natacha churchcharles 04/25/2019 12:00 AM PT Evaluation Low Complexity Reviewed 04/25/2019 12:00 AM HOT OR COLD PACKS THERAPY Re viewed 04/25/2019 12:00 AM Pain Assessment docu mented as positive using a standardized tool AND a follow-up plan is documented. Reviewed 04/27/2019 12:00 AM MANUAL THERAPY 1/> [facility] R simbawed 04/27/2019 12:00 AM THERAPEUTIC EXERCISES Review ed 04/27/2019 12:00 AM HOT OR COLD PACKS THERAPY Re viewed 04/27/2019 12:00 AM Pain Assessment docu mented as positive using a standardized tool AND a follow-up plan is documented. Reviewed 05/05/2019 12:00 AM MANUAL THERAPY 1/> [facility] R simbawed 05/05/2019 12:00 AM THERAPEUTIC EXERCISES Review ed 05/05/2019 12:00 AM HOT OR COLD PACKS THERAPY Re viewed 05/05/2019 12:00 AM Pain Assessment docu mented as positive using a standardized tool AND a follow-up plan is documented. Reviewed History of Past Illness Name Date of Onset Comments none - Phreesia 04/24 Strain of lumbar region, initial encounter 04/24 Back strain, subsequent encounter 04/27/2019 Strain of lumbar region, initial encounter Apr 24 2019 9:10AM Strain of lumbar region, initial encounter Apr 24 2019 8:54AM Arthralgia of lumbar spine Apr 25 2019 10:39AM Strain of muscle, fascia and tendon of lower back, subsequent encounter Apr 25 2019 10:39AM Strain of muscle, fascia and tendon of lower back, subsequent encounter Apr 27 2019 1:46PM Strain of muscle, fascia and tendon of lower back, subsequent encounter May 05 2019 2:08PM Payers Insurance Name Company Name Plan Name Plan Number Policy Num belkis Policy Group Number Start Date [facility] Plan [facility] [id number] N/A History of Encounters Visit Date Visit Type Provider 05/05/2019 Physical Therapy/Occupational Leigh Ann Gallegos RPT 04/27/2019 Physical Therapy/Occupational Leigh Ann Gallegos RPT 04/25/2019 Physical Therapy/Occupational Leigh Ann Gallegos RPT 04/24/2019 Office Visits 04/24/2019 Office Visits Oziel Bingham
--- OUTSIDE RECORDS SUMMARY | 2023-06-29 07:55 | XMS_ITS | Continuity of Care Document ---
Author Name Unknown Organization [facility] Address [address] [facility] [address] [place] [address]- Care Team Providers Care Continuous Mining Machine Company Miner Name Role Phone Marilee Fonseca MD Primary Care Physician Encounter 06/23/21 - 08/03/21 [facility] [address], [facility] [address] [place] [address]- Attending Physician: Marilee Fonseca MD Admitting Physician: Marilee Fonseca MD Referring Physician: Marilee Fonseca MD Allergies, Adverse Reactions, Alerts No Known Allergies
[2023-06-29 08:32] VITALS: BMI 26.1
[2023-06-29 08:36] VITALS: BP 124/71; PULSE 61; RESP 18; TEMP 36.2; O2SAT 98
[2023-06-29] MEDS: Lactated Ringers 1,000 ML 100 ML IVCONT (08:50)
--- NOTE | 2023-06-29 08:57 | HO.ANESPROP2 ---
FORMERLY [facility] Past Medical History Medical History Urinary incontinence Family History Family history of problems with anesthesia: No Surgical History Surgical History History of colonoscopy History of hysterectomy History of tonsillectomy Hx of breast reduction, elective History of Problems with Anesthesia: No Social History Social History Patient Tobacco Use Status: Former Tobacco user Quit Date: QUIT AGE 19 Use of substances other than those prescribed or required for medical reasons: Yes Substance Use Type Other:: THC GUMMIES Are you DNR?: No Advance Directives: No Advance Directives Information Provided: Yes Meds Allergies Allergy/AdvReac Type Severity Reaction Status Date / Time No Known Allergies Allergy Verified 03/06/20 17:48 Active Medications: Current Medications Lactated Ringer's (Lr) 1,000 mls @ 100 mls/hr IVCONT .Q10H MARYLOU Last Admin: 06/29/23 08:50 Dose: 100 mls/hr Ondansetron HCl (Ondansetron Hcl 4 Mg/2 Ml Vial) 4 mg IVPUSH ONCE PRN PRN Reason: Nausea and Vomiting Home Medications Medication Instructions Recorded Confirmed Last Taken Type bupropion HCl 150 mg tablet,12 hr 150 mg PO DAILY 06/29/23 06/29/23 Unknown History sustained-release cholecalciferol (vitamin D3) 25 25 mcg PO DAILY 06/29/23 06/29/23 Unknown History mcg (1,000 unit) tablet Exam Height,Weight and Vital Signs: Height 5 ft 4 in Weight 68.855 kg Last Vital Signs Temp 97.2 F 06/29/23 08:36 Pulse 61 06/29/23 08:36 Resp 18 06/29/23 08:36 BP 124/71 06/29/23 08:36 Pulse Ox 98 06/29/23 08:36 O2 Del Method Room Air 06/29/23 08:36 Airway Mallampati Class: III TM Dist: >3cm Neck ROM: Full Heart: rrr Lungs: clear Assessment and Plan Final Anesthetic Review Family History of Problems with Anesthesia: No History of Problems with Anesthesia: No NPO: Yes ASA Class: II Final Preanesthetic Review: No Changes in Pt Med Stat, Meds/Allgs Chart Reviewed, Consent Obtained/Reviewed and Anes Risks/Benef Reviewed Patient Risk: Low Procedure Risk: Low Anesthetic Plan Anesthetic Plan: MAC: Disposition: Standard PACU
--- NOTE | 2023-06-29 09:00 | P.HPSUR_ITS ---
Pre-Procedural Eval Section A - 24 Hr Update-Section A only Date of Service: 06/29/23 Section B - Complete if H&P > 30 days Chief Complaint: Encounter for screening for malignant neoplasm of Details of Present Illness: see H&P no changes Relevant Family History (Specify if Yes): No Relevant Social History: None Present Medications: see Short Stay Collaborative assessment Medical History: No relevant PMH History of Previous Operations: No relevant previous surgery Allergies: Allergies Allergy/AdvReac Type Severity Reaction Status Date / Time No Known Allergies Allergy Verified 03/06/20 17:48 Review of Systems Sugical H&P ROS: Negative: Constitution, Cardiovascular, Respiratory, Neurological, Psychiatric, Hem-Onc, Allergic/Immunologic, Gastrointestinal, Genitourinary, Musculoskeletal, Integumentary, Endocrine and Eyes/Ears/No se/Throat Exam Surgical H&P Exam: Normal: HEENT, Normal: Heart, Normal: Lungs, Normal: Extremities, Normal: Abdomen, Normal: Skin and Normal: Neurological Plan Diagnosis/Plan: Unchanged I have reviewed the history and physical and performed a pertinent physical examination on my patient. No changes have occurred unless specified. Time Spent With Patient Time: Total time managing care of this patient today ____ minutes.
[2023-06-29 09:45] VITALS: BP 87/38; PULSE 55; RESP 16; TEMP 36.5; O2SAT 99
[2023-06-29 10:00] VITALS: BP 115/59; PULSE 56; RESP 16; TEMP 36.5; O2SAT 100
--- NOTE | 2023-06-29 10:04 | OP_ITS ---
DATE OF SERVICE: 06/29/2023 SURGEON: Drew Linares MD INDICATIONS: Colon cancer screening and prior history of colon polyps. PREOPERATIVE DIAGNOSIS: POSTOPERATIVE DIAGNOSIS: PROCEDURE PERFORMED: Colonoscopy to the terminal ileum with snare polypectomy and cauterization of colon polyp. ESTIMATED BLOOD LOSS: COMPLICATIONS: ANESTHESIA: Monitored anesthesia care. ASSISTANTS: SPECIMENS: DESCRIPTION OF PROCEDURE: A history and physical was performed. The risks and benefits of the procedure were explained to the patient. Informed consent was obtained. The patient was placed in the left lateral decubitus position. A digital rectal exam was performed and was found to be normal. The Olympus pediatric videocolonoscope was introduced into the rectum and advanced to the cecum. The cecum was identified by transillumination, palpation, and identification of ileocecal valve. Examination was performed. The scope was removed. She tolerated the procedure well and was returned to the recovery area in stable condition. FINDINGS: The terminal ileum was examined and appeared normal. The visualized colonic mucosa was normal. The quality of the prep was good. At 40 cm from the anal verge was a less than 10 mm sessile polyp. This was removed with a hot snare and recovered via suction. The base of the polyp was cauterized. No other polyps were identified. There was mild diverticulosis involving the sigmoid. Retroflexed examination showed some small internal hemorrhoids. IMPRESSION: Colon polyp. RECOMMENDATION: Follow up the biopsy results. MD HORACIO Tovar/ROSS / [id number] MTDD
== END 2023-06-29 10:26 | disposition home or self-care (01) ==
PROVIDERS: PCP Internal Medicine Medical Oncology; Visit Provider Internal Medicine Gastroenterology
PROC: 0DJD8ZZ Inspection of Lower Intestinal Tract, Via Natural or Artificial Opening Endoscopic (ICD-10-PCS; CPT 45378; principal; 2023-06-29 09:00)
DX: Z12.11 Encounter for screening for malignant neoplasm of colon (principal); Z86.010 Personal history of colon polyps; Z80.0 Family history of malignant neoplasm of digestive organs; D12.5 Benign neoplasm of sigmoid colon; K64.8 Other hemorrhoids; R32 Unspecified urinary incontinence; F41.8 Other specified anxiety disorders; Z79.899 Other long term (current) drug therapy; Z98.890 Other specified postprocedural states
CPT/HCPCS: 45385; 88305; J2704

== ENCOUNTER 2024-03-29 16:16 | Outpatient (REF) | payer BC, SELFPAY ==
[2024-03-29 17:04] LABS: Eosinophils Absolute Auto 0.1 X10*3/uL (0.0-0.4); Eosinophils Percent Auto 1.9 % (0-4); Hematocrit 42.3 % (37.0-47.0); Imm Gran Abs Auto 0.01 X10*3/uL (0.00-0.03); Imm Gran Pct Auto 0.2 % (0.0-0.4); Lymphocytes Percent Auto 33.9 % (20-40); MANUAL DIFF FLAG SCAN; Mean Platelet Volume 11.6 fL (9.4-12.3); PLT CLUMP 1; Red Cell Distribution Width 12.2 % (11.0-16.0); SCAN SMEAR FLAG 1
[2024-03-29 17:06] LABS: Basophils Percent Auto 0.6 % (0-2); Hemoglobin 14.1 g/dl (12.0-16.0); Lymphocytes Absolute Auto 1.7 X10*3/uL (1.2-4.9); Mean Corpuscular HGB Conc 33.3 g/dl (31.0-35.0); Mean Corpuscular Hemoglobin 30.8 pg (27.0-33.0); Mean Corpuscular Volume 92.4 fL (80.0-98.0); Monocytes Absolute Auto 0.4 X10*3/uL (0.1-1.2); Neutrophils Absolute Auto 2.9 x10*3/uL (2.0-8.3); Neutrophils Percent Auto 56.4 % (45-73); Red Blood Count 4.58 X10*6/uL (4.20-5.50)
[2024-03-29 17:31] LABS: White Blood Count 5.1 X10*3/uL (4.8-10.8)
[2024-03-29 17:34] LABS: SLIDE REVIEW VERIFIED
[2024-03-29 17:38] LABS: Alanine Aminotransferase 40 U/L (0-31); Albumin Level 4.7 g/dL (3.5-5.0); Alkaline Phosphatase 86 U/L (39-117); Anion Gap 12 (12-20); Aspartate Amino Transferase 30 U/L (5-31); Bilirubin Total 0.7 mg/dL (0.0-1.0); Blood Urea Nitrogen 13 mg/dL (9-16); Carbon Dioxide 23 mmol/L (22-29); Chloride 108 mmol/L (96-108); Cholesterol 290 mg/dL (<200); Estimated Glomerular Filt Rate > 60; Gamma Glutamyl Transpeptidase 51 U/L (7-33); Glucose Random 76 mg/dL (60-115); HDL Cholesterol 88 mg/dL (>40); LDL Cholesterol Calculated 180 mg/dL (<100); Potassium 3.9 mmol/L (3.3-5.1); Sodium 139 mmol/L (135-145); Total Protein 7.3 g/dL (6.5-8.0); Triglycerides 114 mg/dL (<150)
[2024-03-29 17:54] LABS: Vitamin D 25-OH Total 35.3 ng/mL (>30)
[2024-03-29 18:08] LABS: Erythrocyte Sedimentation Rate 1 MM/HR (0-20)
== END 2024-03-29 16:17 | disposition home or self-care (01) ==
LOC: HO.LAB 16:16
PROVIDERS: PCP Internal Medicine Medical Oncology; Visit Provider Internal Medicine Medical Oncology
DX: R07.9 Chest pain, unspecified (principal); R74.8 Abnormal levels of other serum enzymes; E78.5 Hyperlipidemia, unspecified; E66.3 Overweight
CPT/HCPCS: 36415; 80053; 80061; 82306; 82977; 85025; 85652